=== PATIENT | female | born 1965 | race Caucasian/White ===

== ENCOUNTER 2019-03-29 14:13 | Inpatient (IN) | payer OTHER ==
[~2019-03-29] VITALS: Ht 162.6 cm; Wt 121.3 kg
[2019-03-29] VITALS (12 sets, daily range): BP systolic 117–141; BP diastolic 72–85
[~2019-03-29 14:13] MED LIST: BUPR150T8 PO; CLON0.1T PO; LEVO5TAB29 PO; MELO15TA6 PO; OLOP5DRO EACHEYE; QUET25TA5 PO; THYR60TA PO; TOPI25TA52 PO
[2019-03-29 14:58] LABS: BASO % 0 % (0-3); EOS # 0.1 x10^3/uL (0.0-0.7); EOS % 2 % (0-3); LYMPH % 17 % (24-48); MEAN CORPUSCULAR HEMOGLOBIN 20 pg (25-35); MEAN CORPUSCULAR HGB CONC 29 g/dL (31-37); MEAN CORPUSCULAR VOLUME 68 fL (79-100); MONO # 0.5 x10^3/uL (0.0-1.1); MONO % 9 % (0-9); NEUT # 4.2 x10^3uL (1.8-7.7); NEUT % 72 % (31-73); PLATELET COUNT 269 x10^3/uL (140-400); RED BLOOD COUNT 2.52 x10^6/uL (3.50-5.40); RED CELL DISTRIBUTION WIDTH 19.1 % (11.5-14.5); WHITE BLOOD COUNT 5.9 x10^3/uL (4.0-11.0)
[2019-03-29 15:16] LABS: ALBUMIN 3.3 g/dL (3.4-5.0); ALBUMIN/GLOBULIN RATIO 0.9 (1.0-1.7); CALCIUM 8.4 mg/dL (8.5-10.1); CREATININE 1.3 mg/dL (0.6-1.0); GFR 42.8; POTASSIUM 3.8 mmol/L (3.5-5.1); TOTAL BILIRUBIN 0.2 mg/dL (0.2-1.0); TOTAL PROTEIN 6.9 g/dL (6.4-8.2)
--- NOTE | 2019-03-29 15:29 | PHYS DOC ---
Past History Past Medical History: Anxiety, Depression, Hypertension, Other Past Surgical History: Appendectomy, Cholecystectomy, Gastric Bypass, Hysterectomy Alcohol Use: None Drug Use: None Adult General Chief Complaint Chief Complaint: ABNORMAL LABS HPI HPI 54-year-old female presents with abnormal labs. She was told her hemoglobin was 5 [place] her to the emergency room. Patient has known iron deficiency. She's never had a hemoglobin this low before. She has been feeling short of breath with exertion and generally fatigued and lightheaded the last few days. She denies any active bleeding. She has not had any dark stools. She denies vomiting. No fever or chills. Review of Systems Review of Systems Constitutional: Fatigue. Denies fever or chills [] Eyes: Denies change in visual acuity, redness, or eye pain [] HENT: Denies nasal congestion or sore throat [] Respiratory:shortness of breath [] Cardiovascular: No additional information not addressed in HPI [] GI: Denies abdominal pain, nausea, vomiting, bloody stools or diarrhea [] : Denies dysuria or hematuria [] Musculoskeletal: Denies back pain or joint pain [] Integument: Denies rash or skin lesions [] Neurologic: Denies headache, focal weakness or sensory changes [] Endocrine: Denies polyuria or polydipsia [] All other systems were reviewed and found to be within normal limits, except as documented in this note. Allergies Allergies Allergies Coded Allergies Type Severity Reaction Last Updated Verified Latex, Natural Rubber Allergy Unknown 07/13/14 Yes Sulfa (Sulfonamide Antibiotics) Allergy Unknown 07/13/14 Yes cortisone Allergy Unknown 07/13/14 Yes ibuprofen Allergy Unknown 07/13/14 Yes Physical Exam Physical Exam Constitutional: Well developed, obese, well nourished, no acute distress, non- toxic appearance. Pale[] HENT: Normocephalic, atraumatic, bilateral external ears normal, oropharynx moist, no oral exudates, nose normal. [] Eyes: PERRLA, EOMI, conjunctiva normal, no discharge. [] Neck: Normal range of motion, no tenderness, supple, no stridor. [] Cardiovascular:Heart rate regular rhythm, no murmur [] Lungs & Thorax: Bilateral breath sounds clear to auscultation [] Abdomen: Bowel sounds normal, soft, no tenderness, no masses, no pulsatile masses. [] Skin: Warm, dry, no erythema, no rash. [] Back: No tenderness, no CVA tenderness. [] Extremities: No tenderness, no cyanosis, no clubbing, ROM intact, no edema. [] Neurologic: Alert and oriented X 3, normal motor function, normal sensory function, no focal deficits noted. [] Psychologic: Affect normal, judgement normal, mood normal. [] Current Patient Data Vital Signs Vital Signs Date Time Temp Pulse Resp B/P (MAP) Pulse Ox O2 Delivery O2 Flow Rate FiO2 03/29/19 14:31 107 18 100 Room Air Lab Results Laboratory Tests Test 03/29/19 14:41 White Blood Count 5.9 x10^3/uL (4.0-11.0) Red Blood Count 2.52 x10^6/uL (3.50-5.40) L Hemoglobin 5.0 g/dL (12.0-15.5) *L Hematocrit 17.0 % (36.0-47.0) *L Mean Corpuscular Volume 68 fL (79-100) L Mean Corpuscular Hemoglobin 20 pg (25-35) L Mean Corpuscular Hemoglobin Concent 29 g/dL (31-37) L Red Cell Distribution Width 19.1 % (11.5-14.5) H Platelet Count 269 x10^3/uL (140-400) Neutrophils (%) (Auto) 72 % (31-73) Lymphocytes (%) (Auto) 17 % (24-48) L Monocytes (%) (Auto) 9 % (0-9) Eosinophils (%) (Auto) 2 % (0-3) Basophils (%) (Auto) 0 % (0-3) Neutrophils # (Auto) 4.2 x10^3uL (1.8-7.7) Lymphocytes # (Auto) 1.0 x10^3/uL (1.0-4.8) Monocytes # (Auto) 0.5 x10^3/uL (0.0-1.1) Eosinophils # (Auto) 0.1 x10^3/uL (0.0-0.7) Basophils # (Auto) 0.0 x10^3/uL (0.0-0.2) Platelet Estimate Pending Sodium Level 141 mmol/L (136-145) Potassium Level 3.8 mmol/L (3.5-5.1) Chloride Level 105 mmol/L (98-107) Carbon Dioxide Level 24 mmol/L (21-32) Anion Gap 12 (6-14) Blood Urea Nitrogen 16 mg/dL (7-20) Creatinine 1.3 mg/dL (0.6-1.0) H Estimated GFR (Cockcroft-Gault) 42.8 BUN/Creatinine Ratio 12 (6-20) Glucose Level 98 mg/dL (70-99) Calcium Level 8.4 mg/dL (8.5-10.1) L Total Bilirubin 0.2 mg/dL (0.2-1.0) Aspartate Amino Transferase (AST) 11 U/L (15-37) L Alanine Aminotransferase (ALT) 12 U/L (14-59) L Alkaline Phosphatase 144 U/L (46-116) H Total Protein 6.9 g/dL (6.4-8.2) Albumin 3.3 g/dL (3.4-5.0) L Albumin/Globulin Ratio 0.9 (1.0-1.7) L EKG EKG [] Radiology/Procedures Radiology/Procedures [] Course & Med Decision Making Course & Med Decision Making Pertinent Labs and Imaging studies reviewed. (See chart for details) The patient had a hemoglobin of 5. I ordered 1 unit of packed red blood cells. I will admit the patient to the hospital. I discussed the patient with Dr. Galloway and he has accepted her for admission. [] Dragon Disclaimer Dragon Disclaimer This electronic medical record was generated, in whole or in part, using a voice recognition dictation system. Departure Departure: Impression: Primary Impression: Anemia Disposition: ADMITTED INPATIENT Admitting Physician: Sylvia Galloway Condition: GUARDED Referrals: LIANA AVILES MD (PCP) Problem Qualifiers Primary Impression: Anemia Anemia type: iron deficiency Iron deficiency anemia type: unspecified iron deficiency Qualified Codes: D50.9 - Iron deficiency anemia, unspecified LANCETAYLOR COLON Mar 29, 2019 15:29
[2019-03-29 16:36] LABS: ANISOCYTOSIS MOD; HYPOCHROMIA MOD; PLT ESTIMATE ADEQUATE (ADEQUATE)
[2019-03-29 16:38] LABS: MICROCYTOSIS MOD
[2019-03-29 16:39] LABS: OVALOCYTES FEW; POIKILOCYTOSIS SLIGHT
--- NOTE | 2019-03-29 17:50 | NUR ---
Blood transfusion started at 1735, tubing primed with normal saline and then primed with blood. Transfusion started at 75ml/hr, patient monitored closely x 15 minute, no reaction noted. Transfusion increased to 125ml/hr at 1750.
--- NOTE | 2019-03-29 17:52 | NUR ---
The patient, KIARRA WALLIS, 54 y/o, F admitted by VIOLET GARCIA MD, was given written information regarding hospital policies, unit procedures and contact persons. Valuables were checked and left at bedside. Patient admitted with a diagnosis of low hemoglobin and to receive blood transfusion per doctor order.
[2019-03-29] MEDS ORDERED: ACETAMINOPHEN 325 MG TABLET PO PRN (18:15)
[2019-03-29] MEDS ORDERED: ONDANSETRON PF 4 MG/2 ML VIAL. IV PRN (18:15)
[2019-03-29] MEDS ORDERED: ERGO500027 PO (19:48)
[2019-03-29] MEDS ORDERED: CYCL-331 PO (19:48)
[2019-03-29] MEDS ORDERED: CELE200C PO (19:48)
[2019-03-29] MEDS ORDERED: VENL225T PO (19:48)
[2019-03-29] MEDS ORDERED: OMEP40CA45 PO (19:48)
[2019-03-29] MEDS ORDERED: METF500T16 PO (19:48)
[2019-03-29] MEDS ORDERED: LISI10TA2 PO (19:48)
--- NOTE | 2019-03-29 20:25 | NUR ---
1st unit of blood completed @2024. VSS. Pt tolerated well.
[2019-03-29] MEDS ORDERED: CELECOXIB 200 MG CAPSULE PO SCH (21:00)
[2019-03-29] MEDS: CETIRIZINE HCL 10 MG TABLET PO SCH (21:30)
[2019-03-29] MEDS: metFORMIN 500 MG TABLET PO SCH (21:30)
[2019-03-29] MEDS: CYCLOBENZAPRINE 10 MG TABLET. PO SCH (21:30)
[2019-03-29] MEDS: PANTOPRAZOLE 40 MG TABLET. PO SCH (21:30)
[2019-03-29] MEDS: LISINOPRIL 10 MG TABLET PO SCH (21:30)
[2019-03-29] MEDS: VENLAFAXINE 75 MG TABLET. PO SCH (21:54)
[2019-03-29] MEDS: CELECOXIB 100 MG CAPSULE PO SCH (21:54)
--- NOTE | 2019-03-29 23:41 | NUR ---
2nd unit of blood: Blood transfusion started @ 2056. Tubing primed with normal saline and then primed with blood. Transfusion started at 100ml/hr, patient monitored closely x15 minute. No reaction noted, transfusion increased to 150ml/hr. Transfusion completed @ 2324. VSS. Pt tolerated well.
[2019-03-30] VITALS (10 sets, daily range): BP systolic 116–155; BP diastolic 65–87
[2019-03-30 00:42] LABS: BASO % 1 % (0-3); EOS # 0.2 x10^3/uL (0.0-0.7); EOS % 3 % (0-3); HEMATOCRIT 22.2 % (36.0-47.0); LYMPH # 1.4 x10^3/uL (1.0-4.8); LYMPH % 20 % (24-48); MEAN CORPUSCULAR HEMOGLOBIN 22 pg (25-35); MEAN CORPUSCULAR HGB CONC 31 g/dL (31-37); MEAN CORPUSCULAR VOLUME 72 fL (79-100); MONO # 0.7 x10^3/uL (0.0-1.1); MONO % 10 % (0-9); NEUT # 4.6 x10^3uL (1.8-7.7); NEUT % 67 % (31-73); PLATELET COUNT 264 x10^3/uL (140-400); RED BLOOD COUNT 3.09 x10^6/uL (3.50-5.40); RED CELL DISTRIBUTION WIDTH 22.5 % (11.5-14.5); WHITE BLOOD COUNT 6.8 x10^3/uL (4.0-11.0)
[2019-03-30 00:45] LABS: HEMOGLOBIN 6.8 g/dL (12.0-15.5)
--- NOTE | 2019-03-30 02:03 | NUR ---
3rd unit of blood: Blood transfusion started @ 0146. Tubing primed with normal saline and then primed with blood. Transfusion started at 100ml/hr, patient monitored closely x15 minute. No reaction noted, transfusion increased to 150ml/hr.
[2019-03-30 06:47] LABS: BASO % 1 % (0-3); EOS # 0.2 x10^3/uL (0.0-0.7); EOS % 4 % (0-3); HEMATOCRIT 24.1 % (36.0-47.0); HEMOGLOBIN 7.5 g/dL (12.0-15.5); LYMPH % 18 % (24-48); MEAN CORPUSCULAR HEMOGLOBIN 23 pg (25-35); MEAN CORPUSCULAR HGB CONC 31 g/dL (31-37); MEAN CORPUSCULAR VOLUME 73 fL (79-100); MONO # 0.5 x10^3/uL (0.0-1.1); MONO % 9 % (0-9); NEUT # 3.9 x10^3uL (1.8-7.7); NEUT % 69 % (31-73); PLATELET COUNT 245 x10^3/uL (140-400); RED BLOOD COUNT 3.31 x10^6/uL (3.50-5.40); RED CELL DISTRIBUTION WIDTH 22.8 % (11.5-14.5); WHITE BLOOD COUNT 5.7 x10^3/uL (4.0-11.0)
[2019-03-30 06:57] LABS: CALCIUM 8.3 mg/dL (8.5-10.1); POTASSIUM 3.8 mmol/L (3.5-5.1)
[2019-03-30] MEDS: VENLAFAXINE 75 MG TABLET. PO SCH ×3 (08:21→20:25)
[2019-03-30] MEDS: metFORMIN 500 MG TABLET PO SCH ×2 (08:21→20:25)
--- NOTE | 2019-03-30 08:40 | NUR ---
NURSING NOTE PT REFUSED FLU SHOT. IMCHA VIEIRA.
[2019-03-30] MEDS ORDERED: IRON SUCROSE COMPLEX 200 MG in IV NORMAL SALINE 100ML 100 ML IV ONE (16:30)
--- NOTE | 2019-03-30 16:37 | HP ---
ADMIT DATE: 03/29/2019 HISTORY OF PRESENT ILLNESS: The patient is a 54-year-old female patient, who came to the Emergency Room with abnormal labs. She was told her hemoglobin was 5 [place] and she was sent to the Emergency Room. The patient is known to have iron deficiency anemia. She has never had hemoglobin this low before, has been feeling short of breath on exertion and generally fatigued and lightheaded over the last few days. She denies any active bleeding. In particular, denied any hematemesis, melena, hematochezia. Denied any hematuria, hemoptysis or epistaxis. On questioning her further, the patient stated that she has been having aches and pains all over. She has been taking Excedrin at least 6 tablets a day for years. She was evaluated in the Emergency Room, was found to have extremely low hemoglobin 5 and hematocrit 17. Her MCV was extremely low also at 68 femtoliter. We did type and cross. The patient has received 2 units of packed RBCs. We did also send stool for occult blood as well as serum iron, TIBC, and serum ferritin; results are still pending. PAST MEDICAL HISTORY: Significant for hypertension, chronic kidney disease. She has also been told she has fatty liver, morbid obesity, obstructive sleep apnea. She has had a CPAP machine, but she does not use it. PAST SURGICAL HISTORY: Significant for total abdominal hysterectomy, gastric bypass surgery in 1998, cholecystectomy, appendectomy, tonsillectomy, right total knee arthroplasty. ALLERGIES: She is allergic to LATEX, NATURAL RUBBER, SULFA, CORTISONE, AND IBUPROFEN. MEDICATIONS: She is currently on following medications: She is on levocetirizine for Xyzal 5 mg once a day, cyclobenzaprine 10 mg at bedtime, lisinopril 10 mg daily, Celebrex 200 mg daily, venlafaxine 225 mg daily, omeprazole 40 mg once a day, metformin 500 mg once a day, ergocalciferol for vitamin D 50,000 International Unit once a day. FAMILY HISTORY: She has one sister at age of 46 because of myocardial infarction, one older sister alive at the age of 58 and older brother alive at age of 60, apparently healthy. Her father at age of 52 because of Agent [place]. Mother at the age of 70 because of colon cancer. SOCIAL HISTORY: She is , has 2 daughters. She never smoked, does not drink alcohol or use any recreational drugs. She is unemployed. REVIEW OF SYSTEMS: Initially, the patient denied any blurring of vision, cataract, glaucoma or macular degeneration. Denied any earache, tinnitus or sensorineural deafness. Denied any nosebleeds, stuffy nose or postnasal drip. Denied any sore throat, sore tongue, toothache, hoarseness of voice or difficulty swallowing. Denied any nausea, vomiting, diarrhea or constipation. Denied any hematemesis, melena or hematochezia. Denied any dysuria, frequency or hematuria. Denied any chest pain. Did complain of shortness of breath, but denied any orthopnea or paroxysmal nocturnal dyspnea. Denied any cough, phlegm or hemoptysis. Denied any chills, rigors or fever. PHYSICAL EXAMINATION: GENERAL: On arrival yesterday, she was pale, no jaundice, cyanosis or thyromegaly. No jugular venous distention. No limb edema. VITAL SIGNS: Her heart rate was 81, blood pressure 136/80, temperature was 97.7, respiratory rate 20, and oxygen saturation was 100% on room air. HEAD, EYES, EARS, NOSE AND THROAT: Normocephalic, atraumatic. NECK: Supple. HEART: Showed normal first and second heart sounds. No gallop or murmur. CHEST: Clear to auscultation. No crepitation or rhonchi. ABDOMEN: Marked distended, soft, nontender. NEUROLOGIC: She is awake, alert, responding appropriately. All cranial nerves intact. EXTREMITIES: She moves extremities without difficulty. She ambulates without assistance or assistive devices. LABORATORY DATA: On admission showed a white cell count 5900, hemoglobin 5, hematocrit 17, MCV 68, and platelet count 269,000. Her chemistry showed a serum sodium 141, potassium 3.8, chloride 105, bicarbonate 24, anion gap of 12, BUN 16, creatinine 1.3, estimated GFR was 42 mL per minute. Her glucose was 98, calcium was 8.4. Total bilirubin, AST, ALT, alkaline phosphatase were elevated slightly. Total protein 6.9, albumin 3.3. ASSESSMENT AND PLAN: The patient was typed and crossed and was admitted to transfuse 2 units of packed RBCs. I sent stool for occult blood. I sent also some lab work for iron studies. I will decide on further management accordingly. VIOLET GARCIA MD DR: GREG/veronique JOB#: [id number] / [id number]
[2019-03-30 16:45] LABS: FECAL OB PT POSITIVE (NEG)
[2019-03-30] MEDS: CETIRIZINE HCL 10 MG TABLET PO SCH (20:23)
[2019-03-30] MEDS: CYCLOBENZAPRINE 10 MG TABLET. PO SCH (20:23)
[2019-03-30] MEDS: LISINOPRIL 10 MG TABLET PO SCH (20:24)
[2019-03-30] MEDS: CELECOXIB 100 MG CAPSULE PO SCH (20:24)
[2019-03-30] MEDS: PANTOPRAZOLE 40 MG TABLET. PO SCH (20:25)
--- NOTE | 2019-03-30 22:51 | PN ---
DATE: 03/30/2019 SUBJECTIVE: The patient was admitted yesterday and was sent to the Emergency Room from the [facility] for severe anemia with a hemoglobin of only 5, hematocrit 17. She was found also to have severe microcytic hypochromic anemia. We did type and cross 2 units of packed RBCs and she was transfused 2 units of blood. Her hemoglobin this morning was 7.5, hematocrit 24. We did send stool for occult blood and serum for iron, TIBC and serum ferritin; the results are still pending. It transpired the patient has been taking Excedrin about 6 tablets a day for years and also she is on Celebrex 200 mg once a day and she is known to have gastric bypass surgery, so has all the ingredients for severe iron deficiency anemia. Her last esophagogastroduodenoscopy and colonoscopy was done about 10 years ago when her mother with colon cancer. She does not tolerate oral iron. PHYSICAL EXAMINATION: GENERAL: When I saw her this afternoon, she looked well and was clearly in no apparent respiratory distress. She was pale, but no jaundice, cyanosis or thyromegaly. NECK: No jugular venous distension. EXTREMITIES: No lower limb edema. VITAL SIGNS: Her heart rate was 83, blood pressure was 138/82, temperature was 98.2, respiratory rate was 20, and oxygen saturation was 96%. The rest of clinical exam is stable. LABORATORY DATA: Her white cell count this morning was 5700, hemoglobin 7.5, hematocrit 24, MCV 73 and platelet count 245,000. Serum sodium 143, potassium 3.8, chloride 107, bicarbonate 24, anion gap of 12, BUN 14, creatinine 1, estimated GFR was 58 mL per minute. Her glucose was 88 and calcium was 8.3. ASSESSMENT AND PLAN: I explained to the patient that she is obviously taking too much Excedrin and probably Celebrex also contributing to her probably multiple gastric erosions or ulcers from which she is oozing blood; that she needs to stop both of them. We are going to start her on Venofer IV and we will arrange for her to be seen by Dr. Reddy for outpatient endoscopy. VIOLET GARCIA MD DR: GREG/veronique JOB#: [id number] / [id number]
[2019-03-31 05:08] VITALS: BP 123/76
[2019-03-31 06:38] LABS: HEMATOCRIT 25.6 % (36.0-47.0); RED BLOOD COUNT 3.54 x10^6/uL (3.50-5.40); RED CELL DISTRIBUTION WIDTH 23.4 % (11.5-14.5); WHITE BLOOD COUNT 6.8 x10^3/uL (4.0-11.0)
[2019-03-31 06:49] LABS: CALCIUM 8.8 mg/dL (8.5-10.1)
[2019-03-31] MEDS: VENLAFAXINE 75 MG TABLET. PO SCH ×2 (09:00→13:40)
[2019-03-31] MEDS: metFORMIN 500 MG TABLET PO SCH (09:00)
--- NOTE | 2019-03-31 09:34 | NUR ---
Patient complained of a headache to this nurse, requested Tylenol for head ache. Notified Dr. Galloway via telephone and new order for acetaminophen 500mg PO Q6H PRN received. Patient notified of new order.
[2019-03-31] MEDS ORDERED: ACETAMINOPHEN 500 MG TABLET PO PRN (09:45)
[2019-03-31] MEDS ORDERED: IRON SUCROSE COMPLEX 500 MG in IV NORMAL SALINE 250ML 250 ML IV ONE (10:00)
[2019-03-31 10:48] VITALS: BP 123/71
--- NOTE | 2019-03-31 14:29 | NUR ---
Discharge Note: KIARRA WALLIS [address] Discharge instructions and discharge home medications reviewed with Patient and a copy given. All questions have been answered and understanding verbalized. The following instructions and handouts were given: Medications d/c Discontinued lines and drains: iv IN right hand d/c Patient discharged to home with daughter and son present at bedside.
--- NOTE | 2019-03-31 14:54 | NUR ---
Discharge Note: KIARRA WALLIS [address] Discharge instructions and discharge home medications reviewed with Patient and a copy given. All questions have been answered and understanding verbalized. The following instructions and handouts were given: PNEUMONIA, ISO Discontinued lines and drains: IV IN RIGHT AC D/C Patient discharged to [facility] for skilled therapy. Addendum: 03/31/19 at 1457 by MARY OLMSTEAD RN RN WRONG PATIENT.
--- NOTE | 2019-03-31 15:36 | DS ---
DATE OF DISCHARGE: HOSPITAL COURSE: The patient is a 54-year-old female patient who was transferred from [facility] with severe anemia with hemoglobin only 5 and hematocrit 17. It transpired that she had been taking Excedrin 6 tablets every day for years and she is also on Celebrex ____ mg once a day and she has had gastric bypass surgery. The patient was transfused 2 units of packed RBCs. Her serum iron was extremely low with serum iron of only 10, TIBC of 523 and iron saturation 2, her serum ferritin was only 4. Also, she was given Venofer, a total of about 700 mg intravenously. She does not tolerate oral iron. PHYSICAL EXAMINATION: GENERAL: When I saw her today, she was resting comfortably in bed, in no apparent distress. On questioning her, she continued to be somewhat weak, tired, but generally much better. She was pale, no jaundice, cyanosis or thyromegaly. No jugular venous distension. No limb edema. VITAL SIGNS: Her heart rate was 81, blood pressure was 123/71, temperature was 97.9, respiratory rate was 18 and oxygen saturation was 95% on room air. HEAD, EYES, EARS, NOSE AND THROAT: Showed normocephalic, atraumatic. NECK: Supple. HEART: Showed normal first and second heart sounds. No gallop or murmur. CHEST: Clear to auscultation. No crepitation or rhonchi. ABDOMEN: Distended, soft, nontender. No guarding or rigidity. No organomegaly. All hernial orifices intact. Bowel sounds normal. NEUROLOGIC: She was awake, alert, responding appropriately. All cranial nerves intact. EXTREMITIES: She moves extremities without difficulty. LABORATORY DATA: Today showed her white cell count was 6800, hemoglobin 8, hematocrit 25.6, MCV 72 and platelet count 263,000. Her chemistry showed a serum sodium 142, potassium 4, chloride 107, bicarbonate 26, anion gap of 9, BUN 13, creatinine 1, estimated GFR was 58 mL per minute. Her glucose was 87 and calcium was 8.8. DISCHARGE MEDICATIONS: She was discharged home on Flexeril 10 mg at bedtime, vitamin D 50,000 international unit once a day, Xyzal 5 mg once a day, lisinopril 10 mg once a day, metformin 500 mg twice a day, omeprazole 40 mg once a day and venlafaxine 225 mg once a day. She was advised to discontinue her Excedrin as well as Celebrex and use Tylenol Arthritis for aches and pains. We have also provided her with the telephone number for ____ office so that she can go to her primary care physician to arrange for upper GI endoscopy and we also gave her an order for Venofer to come and have it injected as an outpatient in 2 weeks' time if her primary care physician can authorize that through the insurance. VIOLET GARCIA MD DR: GREG/veronique JOB#: [id number] / [id number]
[2019-04-09] MEDS ORDERED: CHOLECALCIFEROL (VITAMIN D3) 50,000 UNIT CAPSULE PO SCH (16:00)
== END 2019-03-31 14:53 | disposition home or self-care (01) | DRG 811 ==
LOC: ER 14:13 → 1 SOUTH 16:00
PROVIDERS: ADMIT Internal Medicine; ATTEND Internal Medicine
PROC: 30233N1 Transfusion of Nonautologous Red Blood Cells into Peripheral Vein, Percutaneous Approach (ICD-10-PCS; principal; 2019-03-29)
DX: D50.9 Iron deficiency anemia, unspecified (principal); N17.0 Acute kidney failure with tubular necrosis; Z68.42 Body mass index [BMI] 45.0-49.9, adult; E66.01 Morbid (severe) obesity due to excess calories; N18.9 Chronic kidney disease, unspecified; F41.9 Anxiety disorder, unspecified; F32.9 Major depressive disorder, single episode, unspecified; G47.33 Obstructive sleep apnea (adult) (pediatric); K76.0 Fatty (change of) liver, not elsewhere classified; Z96.651 Presence of right artificial knee joint; I12.9 Hypertensive chronic kidney disease with stage 1 through stage 4 chronic kidney disease, or unspecified chronic kidney disease; Z90.49 Acquired absence of other specified parts of digestive tract; Z98.84 Bariatric surgery status; Z90.710 Acquired absence of both cervix and uterus; Z88.2 Allergy status to sulfonamides; Z88.8 Allergy status to other drugs, medicaments and biological substances; Z88.6 Allergy status to analgesic agent; Z91.040 Latex allergy status; Z80.0 Family history of malignant neoplasm of digestive organs; Z82.49 Family history of ischemic heart disease and other diseases of the circulatory system; Z79.1 Long term (current) use of non-steroidal anti-inflammatories (NSAID)
CPT/HCPCS: 36415; 36430; 80048; 80053; 82274; 82728; 82947; 83540; 83550; 85025; 85027; 86850; 86900; 86901; 86920; J1756; J7050; P9016; 99285-25

== ENCOUNTER → 2019-04-15 | Outpatient (CLI) | payer OTHER ==
[~2019-04-15] MED LIST changes: +CELE200C PO; +CYCL-331 PO; +ERGO500027 PO; +LISI10TA2 PO; +METF500T16 PO; +OMEP40CA45 PO; +VENL225T PO
[2019-04-15] MEDS: IRON SUCROSE COMPLEX 500 MG in IV NORMAL SALINE 250ML 250 ML IV ONE ×2 (13:30→14:20)
[2019-04-15 14:24] VITALS: BP 117/74
[2019-04-15 14:26] LABS: HEMATOCRIT 29.6 % (36.0-47.0); HEMOGLOBIN 9.1 g/dL (12.0-15.5); RED BLOOD COUNT 3.83 x10^6/uL (3.50-5.40); RED CELL DISTRIBUTION WIDTH 25.6 % (11.5-14.5); WHITE BLOOD COUNT 4.9 x10^3/uL (4.0-11.0)
--- NOTE | 2019-04-15 17:59 | NUR ---
Pt ambulated to room 131 for IV infusion. Vitals taken, IV inserted, Infusion started.
--- NOTE | 2019-04-15 18:00 | NUR ---
Infusion complete, IV flushed with 10cc ns, IV removed, pressure dressing applied, no complications. Pt vitals taken. Pt ambulated off unit.
[2019-04-15 18:05] VITALS: BP 122/89
== END | disposition home or self-care (01) ==
LOC: OPINF 13:04
PROVIDERS: ATTEND Internal Medicine
DX: D64.9 Anemia, unspecified (principal); I12.9 Hypertensive chronic kidney disease with stage 1 through stage 4 chronic kidney disease, or unspecified chronic kidney disease; N18.9 Chronic kidney disease, unspecified; F41.9 Anxiety disorder, unspecified; F32.9 Major depressive disorder, single episode, unspecified; E66.01 Morbid (severe) obesity due to excess calories; Z68.42 Body mass index [BMI] 45.0-49.9, adult; Z90.49 Acquired absence of other specified parts of digestive tract; Z90.710 Acquired absence of both cervix and uterus; Z79.1 Long term (current) use of non-steroidal anti-inflammatories (NSAID)
CPT/HCPCS: 36415; 36591; 85027; 96365; 96366; J1756; J7050; 36592; 96367